=== PATIENT | female | born 1950 | race Hispanic/Latino ===

== ENCOUNTER 2023-08-19 14:44 | Inpatient (IN) | payer SELFPAY ==
[~2023-08-19 14:44] MED LIST: Iopamidol-370 76% 500 ML MDV (1 ML CHARGE) ONE
[2023-08-19 15:19] LABS: Actual Bicarbonate (HCO3v) 23.1 mEq/L (22-28); Base Excess 0.4 mEq/L (-2.0 to +3.0); Calcium, Ionized (venous) 1.08 mmol/L (1.16-1.32); Chloride (VBG) 100 mmol/L (98-106); Hematocrit-VBG 37 % (36.0-47.0); Hemoglobin (Hb) 12.7 g/dL (11.7-16.1); Potassium (VBG) 3.51 mmol/L (3.70-5.30); Sodium 133 mmol/L (133-146); pH (venous) 7.481 (7.32-7.43)
[2023-08-19] MEDS ORDERED: Cefepime 2 GM VIAL ONE (15:22)
[2023-08-19] MEDS ORDERED: Sodium Chloride 0.9% 100 ML ONE (15:23)
[2023-08-19 15:24] LABS: #Basophils 0.06 10x3/uL (0.0-0.2); #Eosinphils Less than 0.03 10x3/uL (0.0-0.7); %Basophils 0.3 % (0.0-1.0); %Eosinophils 0.1 % (0.0-10.0); %Lymphocytes 7.7 % (21.0-51.0); %Monocytes 7.7 % (0.0-10.0); %Neutrophils 83.6 % (42.0-75.0); Hematocrit 36.9 % (36.0-47.0); Hemoglobin 11.8 g/dL (12.0-16.0); Mean Corpuscular Hemoglobin 28.9 pg (27.0-31.0); Mean Corpuscular Volume 90.2 fL (78.0-98.0); Platelet Count 204 10x3/uL (130-400); RBC Distribution Width 13.4 % (11.5-14.5); Red Blood Cell (RBC) Count 4.09 mill/uL (4.20-5.40)
[2023-08-19 15:40] LABS: ALT (SGPT) 28 U/L (8-55); AST (SGOT) 20 U/L (5-34); Albumin 3.3 g/dL (3.4-4.8); Alkaline Phosphatase 75 U/L (40-110); Anion Gap 16 mmol/L (10-20); BUN (Urea Nitrogen) 8 mg/dL (9.8-20.1); Bilirubin, Total 0.7 mg/dL (0.2-1.2); Calc. Creatinine Clearance 0 mL/min (70-130); Calcium 8.8 mg/dL (7.8-10.44); Carbon Dioxide 20 mmol/L (23-31); Chloride 102 mmol/L (98-107); Estimated GFR 65; Globulin 3.9 g/dL (2.4-3.5); Glucose 223 mg/dL (83-110); Potassium 3.5 mmol/L (3.5-5.1); Protein, Total 7.2 g/dL (5.8-8.1); Sodium 134 mmol/L (136-145)
[2023-08-19] MEDS ORDERED: Acetaminophen 325 MG TAB ONE (15:51)
[2023-08-19 17:30] LABS: Bacteria/HPF None Seen HPF (None Seen); Bilirubin Negative (Negative); Blood, Urine Negative (Negative); CAUTI Indications for Culture Dysuria,urgency,freq; Clarity Clear (Clear); Glucose, Urine (Dipstick) 300 mg/dL (Negative); Ketone, Urine Negative (Negative); Leukocyte Negative Leu/uL (Negative); Nitrite 1+ (Negative); Protein, Urine (Dipstick) Negative (Neg-Trace); RBC/HPF 0-3 HPF (0-3); Squamous Epithelial 0-3 HPF (0-3); Urobilinogen Normal mg/dL (Less than 2)
[2023-08-19 17:43] LABS: Urine Culture Reflex No No
[2023-08-19 18:52] LABS: Lactic Acid 1.2 mmol/L (0.5-2.2)
[2023-08-19] MEDS ORDERED: Glucagon 1 MG/ML KIT IM PRN (20:23)
[2023-08-19] MEDS ORDERED: Dextrose 50% Abboject 50 ML SYRINGE SLOW IVP PRN (20:23)
[2023-08-19] MEDS ORDERED: Dextrose 5% in Water 1,000 ML IV PRN (20:23)
[2023-08-19] MEDS ORDERED: Ondansetron PF 4 MG/2 ML Vial IVP PRN (20:23)
[2023-08-19] MEDS ORDERED: HumaLOG 300 UNITS/3 ML VIAL SC PRN ×2 (20:23)
[2023-08-19] MEDS: Vancomycin (BATCH) 2 GM in Premix 1 BAG IVPB SCH (21:06)
[2023-08-19] MEDS: cefTRIAXone\\ROCEPHIN 1 GM in Sodium Chloride 0.9% 100 ML IVPB SCH (21:22)
[2023-08-19] MEDS ORDERED: Ketorolac Tromethamine 30 MG (1 mL) VIAL IVP PRN (21:26)
[2023-08-19] MEDS: Acetaminophen 325 MG TAB PO PRN (21:36)
[2023-08-19 22:05] VITALS: BMI 32.3
[2023-08-19] MEDS: Lactated Ringer's 1,000 ML IV SCH (22:13)
[2023-08-20 05:59] LABS: #Basophils 0.04 10x3/uL (0.0-0.2); %Basophils 0.3 % (0.0-1.0); %Eosinophils 0.3 % (0.0-10.0); %Lymphocytes 10.9 % (21.0-51.0); %Monocytes 9.3 % (0.0-10.0); %Neutrophils 78.8 % (42.0-75.0); Hematocrit 33.5 % (36.0-47.0); Mean Corpuscular HGB CONC 32.8 g/dL (32.0-36.0); Mean Corpuscular Hemoglobin 29.6 pg (27.0-31.0); Mean Corpuscular Volume 90.1 fL (78.0-98.0); Mean Platelet Volume 11.5 fL (7.4-10.4); Platelet Count 179 10x3/uL (130-400); RBC Distribution Width 13.9 % (11.5-14.5); Red Blood Cell (RBC) Count 3.72 mill/uL (4.20-5.40)
[2023-08-20 06:22] LABS: Anion Gap 10 mmol/L (10-20); BUN (Urea Nitrogen) 7 mg/dL (9.8-20.1); Calc. Creatinine Clearance 95 mL/min (70-130); Calcium 8.2 mg/dL (7.8-10.44); Carbon Dioxide 21 mmol/L (23-31); Chloride 106 mmol/L (98-107); Estimated GFR 86; Glucose 127 mg/dL (83-110); Potassium 3.3 mmol/L (3.5-5.1); Sodium 134 mmol/L (136-145)
[2023-08-20] MEDS: Potassium Chloride 20 MEQ TAB PO SCH (08:55)
[2023-08-20] MEDS: Losartan 25 MG TAB PO SCH (21:08)
[2023-08-20] MEDS: Propranolol 40 MG TAB PO SCH (21:09)
[2023-08-20] MEDS: Enoxaparin 40 MG (0.4 mL) SYRINGE SC SCH (21:09)
[2023-08-21 08:36] LABS: #Basophils 0.03 10x3/uL (0.0-0.2); %Basophils 0.3 % (0.0-1.0); %Eosinophils 2.9 % (0.0-10.0); %Lymphocytes 17.4 % (21.0-51.0); %Monocytes 9.7 % (0.0-10.0); %Neutrophils 69.3 % (42.0-75.0); Hematocrit 33.2 % (36.0-47.0); Hemoglobin 10.9 g/dL (12.0-16.0); Mean Corpuscular HGB CONC 32.8 g/dL (32.0-36.0); Mean Corpuscular Hemoglobin 28.4 pg (27.0-31.0); Mean Corpuscular Volume 86.5 fL (78.0-98.0); Mean Platelet Volume 11.5 fL (7.4-10.4); Platelet Count 191 10x3/uL (130-400); RBC Distribution Width 13.7 % (11.5-14.5); Red Blood Cell (RBC) Count 3.84 mill/uL (4.20-5.40)
[2023-08-21 08:54] LABS: Anion Gap 13 mmol/L (10-20); BUN (Urea Nitrogen) 5 mg/dL (9.8-20.1); Calc. Creatinine Clearance 95 mL/min (70-130); Calcium 8.8 mg/dL (7.8-10.44); Carbon Dioxide 23 mmol/L (23-31); Chloride 104 mmol/L (98-107); Estimated GFR 86; Glucose 138 mg/dL (83-110); Potassium 3.6 mmol/L (3.5-5.1); Sodium 136 mmol/L (136-145)
[2023-08-22 05:15] LABS: #Basophils 0.03 10x3/uL (0.0-0.2); %Basophils 0.4 % (0.0-1.0); %Eosinophils 6.9 % (0.0-10.0); %Lymphocytes 27.9 % (21.0-51.0); %Monocytes 8.9 % (0.0-10.0); %Neutrophils 55.4 % (42.0-75.0); Hematocrit 33.5 % (36.0-47.0); Hemoglobin 10.9 g/dL (12.0-16.0); Mean Corpuscular HGB CONC 32.5 g/dL (32.0-36.0); Mean Corpuscular Volume 89.1 fL (78.0-98.0); Mean Platelet Volume 12.2 fL (7.4-10.4); Platelet Count 194 10x3/uL (130-400); RBC Distribution Width 13.6 % (11.5-14.5); Red Blood Cell (RBC) Count 3.76 mill/uL (4.20-5.40)
[2023-08-22 05:38] LABS: Anion Gap 12 mmol/L (10-20); BUN (Urea Nitrogen) 8 mg/dL (9.8-20.1); Calc. Creatinine Clearance 95 mL/min (70-130); Carbon Dioxide 23 mmol/L (23-31); Chloride 104 mmol/L (98-107); Estimated GFR 86; Glucose 120 mg/dL (83-110); Potassium 3.4 mmol/L (3.5-5.1); Sodium 136 mmol/L (136-145)
[2023-08-22 08:55] VITALS: TEMP 98.1
[2023-08-22 11:21] VITALS: BP 159/76
== END 2023-08-22 12:12 | disposition home or self-care (01) | DRG 872 ==
LOC: ERS 14:44 → T4-A 19:56
PROVIDERS: ADMIT Internal Medicine; ATTEND Hospitalist
DX: A41.9 Sepsis, unspecified organism (principal); N10 Acute pyelonephritis; E11.9 Type 2 diabetes mellitus without complications; E66.9 Obesity, unspecified; I10 Essential (primary) hypertension; G89.29 Other chronic pain; M54.9 Dorsalgia, unspecified; E87.6 Hypokalemia; Z68.32 Body mass index [BMI] 32.0-32.9, adult
CPT/HCPCS: 36415; 36416; 51701; 71045; 74177; 80048; 80053; 81001; 82805; 83605; 85025; 87040; 93005; 94760; 96365; 96366; 96375; J0692; J0696; J1650; J1815; J3370; J3490; J7120; Q9967